=== PATIENT | female | born 1960 | race Caucasian/White ===

== ENCOUNTER 2020-10-25 08:37 | Emergency (ER) | payer OTHER ==
[~2020-10-25] VITALS: Ht 152.4 cm; Wt 65.8 kg
[2020-10-25 08:45] VITALS: BP_SYST 122
[2020-10-25] MEDS ORDERED: HYDROcodone/ACETAMIN 5-325 MG TAB (NORCO/ VICODIN) PO ONE (08:45)
--- NOTE | 2020-10-25 10:00 | NUR ---
Patient to ER bed 5 to gown for evaluation. Side rails up.
--- NOTE | 2020-10-25 10:05 | NUR ---
Pt bib EMS s/p mechanical fall at work. C/O left hip pain 11/02. Denies LOC, no other trauma reported. V/S stable, no acute distress noted.
[2020-10-25] MEDS ORDERED: IBUP-1969 PO (10:08)
--- NOTE | 2020-10-25 10:10 | NUR ---
JENI Grover at bedside examining patient.
--- NOTE | 2020-10-25 10:30 | NUR ---
Patient given written and verbal discharge instructions and verbalizes understanding. ER MD discussed with patient the results and treatment provided. Patient in stable condition. ID arm band removed. Rx of Motrin given. Patient educated on pain management and to follow up with PMD. Pain Scale 0. Opportunity for questions provided and answered. Medication side effect fact sheet provided.
[2020-10-25 11:06] VITALS: BP_SYST 122
== END 2020-10-25 11:06 | disposition home or self-care (01) ==
LOC: SED 08:37
DX: S30.0XXA Contusion of lower back and pelvis, initial encounter (principal); E11.9 Type 2 diabetes mellitus without complications; Z79.899 Other long term (current) drug therapy; W01.198A Fall on same level from slipping, tripping and stumbling with subsequent striking against other object, initial encounter; Y93.89 Activity, other specified; Y92.89 Other specified places as the place of occurrence of the external cause; Y99.8 Other external cause status
CPT/HCPCS: 73502; 82962; 99283